=== PATIENT | female | born 1955 | race Hispanic/Latino ===

== ENCOUNTER 2016-09-26 12:10 | Emergency (ER) | payer MEDICARE, BC ==
[2016-09-26] MEDS ORDERED: TDAP Vaccine 0.5 mL Syr IM ONE (12:48)
--- NOTE | 2016-09-26 13:27 | ED PDOC ---
Arrival/HPI - General Chief Complaint: Abnormal Skin Integrity Time Seen by Provider: 09/26/16 12:18 Historian: Patient - History of Present Illness Narrative History of Present Illness (Text): 09/26/16 13:24 61-year-old female presents today with a laceration to the left eyebrow status post fall. Patient states last night around 1:30 in the morning the patient tripped over a box fell hitting the left side of her head. She denies loss of consciousness. Patient denies headache dizziness or weakness. She is complaining of multiple abrasions to the left side of the face. She denies worsening blurred vision. Patient states she has a history of poor vision and if she is not wearing her glasses she requires a seeing eye dog. Patient states that she was walking last night she just tripped and fell hitting her head. Patient denies neck or back pain. Unsure of her last tetanus shot. No medications were taken at home. No other complaints. Past Medical History - Provider Review Nursing Documentation Reviewed: Yes - Travel History Have you recently traveled outside [place] w/in the past 3 mons?: No - Tetanus Immunization Tetanus Immunization: Unknown Family/Social History - Physician Review Nursing Documentation Reviewed: Yes Family/Social History: Unknown Family HX Smoking Status: Never Smoked Hx Alcohol Use: No Hx Substance Use: No Allergies/Home Meds Allergies/Adverse Reactions: Allergies No Known Allergies Allergy (Verified 09/26/16 12:27) Home Medications: Home Meds Medication Instructions Recorded Confirmed Sertraline [Zoloft] 50 mg PO DAILY 09/26/16 09/26/16 Topiramate [Topamax] 200 mg PO DAILY 09/26/16 09/26/16 Topiramate [Topamax] 300 mg PO DAILY 09/26/16 09/26/16 levETIRAcetam [Keppra] 500 mg PO BID 09/26/16 09/26/16 Review of Systems - Review of Systems Constitutional: absent: Fatigue, Fevers Eyes: absent: Photophobia, Eye Pain Respiratory: absent: Cough Cardiovascular: absent: Chest Pain Gastrointestinal: absent: Abdominal Pain, Nausea, Vomiting Musculoskeletal: absent: Arthralgias Neurological: absent: Headache, Dizziness Physical Exam Vital Signs Reviewed: Yes Vital Signs Temp Pulse Resp BP Pulse Ox 09/26/16 12:30 97.9 F 97 H 16 111/71 97 Temperature: Afebrile Blood Pressure: Normal Pulse: Regular Respiratory Rate: Normal Appearance: Positive for: Well-Appearing, Non-Toxic, Comfortable Pain Distress: None Mental Status: Positive for: Alert and Oriented X 3 - Systems Exam Head: Present: Tenderness (+ ttp over inferior and superior orbit.), Swelling, Abrasion (multiple abrasions to left cheek, abrasion noted to left ear pinna. ), Laceration (4cm verticle jagged laceration to left eyebrow extending to the lateral aspect of the left eye. minimal bleeding noted. ), Other Pupils: Present: PERRL Extroacular Muscles: Present: EOMI Conjunctiva: Present: Normal Ears: Present: Normal, NORMAL TM Mouth: Present: Moist Mucous Membranes Pharnyx: Present: Normal Nose (External): Present: Atraumatic Nose (Internal): Present: Normal Inspection. No: Septal Hematoma Neck: Present: Normal Range of Motion. No: MIDLINE TENDERNESS, Paraspinal Tenderness Respiratory/Chest: Present: Clear to Auscultation, Good Air Exchange. No: Respiratory Distress, Accessory Muscle Use Cardiovascular: Present: Regular Rate and Rhythm, Normal S1, S2. No: Murmurs Neurological: Present: GCS=15, Speech Normal Skin: Present: Warm, Dry Psychiatric: Present: Alert, Oriented x 3 Medical Decision Making ED Course and Treatment: 09/26/16 14:50 61yr old female presents today with laceration to left eyebrow s/p fall last night. pt refused head ct and maxillofacial ct. wound approx 11 hours old. actively bleeding, gapping 4cm jagged laceration. wound irrigated with copious amounts of NS using high pressure irrigation. tetanus updated. laceration repair; 8 sutures placed. bacitracin and dressing applied. advised patient to take keflex 4 times daily x 5 days. advised keeping wound clean and dry and applying bacitracin twice daily. advised immediate return if symptoms worsen,persist or if new symptoms develop. advised return in 5 days for suture removal. Patient verbalizes understanding of discharge instructions and need for immediate followup. impression:Head injury,eyebrow laceration,orbital contusion, facial abrasion Motrin every 6 hours as needed for pain Keflex; 4 time daily x 5 days Keep the wound clean and dry, apply bacitracin twice daily Return in 5 days for suture removal Return immediately if signs of infection develop: High fevers, increasing pain, redness, swelling, purulent discharge Follow up with the plastic surgeon within the next 2 days. Followup with primary care physician within the next 2 days Return if any other concerning symptoms develop - RAD Interpretation Radiology Orders: 09/26/16 12:47 HEAD W/O CONTRAST [CT] Stat MAXILLOFACIAL W/O CONTRAST [CT] Stat - Medication Orders Current Medication Orders: Discontinued Medications Lidocaine HCl (Lidocaine 1% (20ml)) Confirm Administered Dose 20 ml .ROUTE .STK- MED ONE Stop: 09/26/16 13:53 Tetanus/Reduced Diphtheria/Acell Pertussis (Boostrix Vaccine Inj) 0.5 ml IM .ONCE ONE Stop: 09/26/16 12:49 Last Admin: 09/26/16 12:55 Dose: 0.5 ml Disposition/Present on Arrival - Present on Arrival Any Indicators Present on Arrival: No History of DVT/PE: No History of Uncontrolled Diabetes: No Urinary Catheter: No History of Decub. Ulcer: No - Disposition Have Diagnosis and Disposition been Completed?: Yes Diagnosis: Laceration of eyebrow, Abrasion, face w/o infection, Head injury, Orbital contusion Disposition: HOME/ ROUTINE Disposition Time: 13:39 Patient Plan: Discharge Condition: GOOD Discharge Instructions (ExitCare): Head Injury (ED), Facial Laceration (ED) Additional Instructions: Motrin every 6 hours as needed for pain Keflex; 4 time daily x 5 days Keep the wound clean and dry, apply bacitracin twice daily Return in 5 days for suture removal Return immediately if signs of infection develop: High fevers, increasing pain, redness, swelling, purulent discharge Follow up with the plastic surgeon within the next 2 days. Followup with primary care physician within the next 2 days Return if any other concerning symptoms develop Prescriptions: Cephalexin [Keflex] 500 mg PO QID #20 capsule Referrals: Sharan Musa MD [Primary Care Provider] - Follow up with primary Kendrick Stauffer MD [Staff Provider] - Follow up with primary
[2016-09-26 13:38] VITALS: BP 111/71; PULSE 97; RESP 16; TEMP 97.9; O2SAT 97
[2016-09-26] MEDS ORDERED: Lidocaine 1% Inj (20ml) ONE (13:52)
== END 2016-09-26 14:50 | disposition home or self-care (01) ==
LOC: ED 12:10
DX: S01.112A Laceration without foreign body of left eyelid and periocular area, initial encounter (principal); S05.12XA Contusion of eyeball and orbital tissues, left eye, initial encounter; W01.0XXA Fall on same level from slipping, tripping and stumbling without subsequent striking against object, initial encounter; Y93.89 Activity, other specified; Y92.89 Other specified places as the place of occurrence of the external cause; Z23 Encounter for immunization

== ENCOUNTER 2016-09-30 16:42 | Emergency (ER) | payer MEDICARE, BC ==
[2016-09-30 16:46] VITALS: BP 99/68; PULSE 90; RESP 16; TEMP 98; O2SAT 99
--- NOTE | 2016-09-30 17:14 | ED PDOC ---
Arrival/HPI - General Chief Complaint: Wound Check Time Seen by Provider: 09/30/16 16:43 Historian: Patient - History of Present Illness Narrative History of Present Illness (Text): 09/30/16 17:11 This 61 yo female presents to this ED for wound recheck. Patient stated she had a laceration repaired done 4 days ago. She was told to come back 5 days later for suture removal. While waiting in the ED, patient realized she came on day four. She prefers to return tomorrow to have sutures removed. Denies new complains. Time/Duration: Other (4 days) Context: Home Past Medical History - Provider Review Nursing Documentation Reviewed: Yes - Tetanus Immunization Tetanus Immunization: Unknown - Cardiac Hx Cardiac Disorders: No - Pulmonary Hx Respiratory Disorders: No - Neurological Other/Comment: FIBROMYALGIA - HEENT Hx HEENT Disorder: No - Renal Hx Renal Disorder: No - Endocrine/Metabolic Hx Endocrine Disorders: No - Hematological/Oncological Hx Blood Disorders: No - Integumentary Hx Dermatological Disorder: No - Gastrointestinal Hx Gastrointestinal Disorders: No - Genitourinary/Gynecological Hx Genitourinary Disorders: No - Psychiatric Hx Depression: Yes Hx Substance Use: No - Surgical History Hx Orthopedic Surgery: Yes (NECK, R WRIST, SPINE) Family/Social History - Physician Review Nursing Documentation Reviewed: Yes Family/Social History: No Known Family HX Smoking Status: Never Smoked Hx Alcohol Use: No Hx Substance Use: No Allergies/Home Meds Allergies/Adverse Reactions: Allergies No Known Allergies Allergy (Verified 09/30/16 16:43) Home Medications: Home Meds Medication Instructions Recorded Confirmed Sertraline [Zoloft] 50 mg PO DAILY 09/26/16 09/30/16 Topiramate [Topamax] 200 mg PO DAILY 09/26/16 09/30/16 Topiramate [Topamax] 300 mg PO DAILY 09/26/16 09/30/16 levETIRAcetam [Keppra] 500 mg PO BID 09/26/16 09/30/16 Review of Systems - Review of Systems Constitutional: Normal. absent: Fatigue, Weight Change, Fevers Eyes: Normal ENT: Normal Respiratory: Normal Cardiovascular: Normal Gastrointestinal: Normal Genitourinary Female: Normal Musculoskeletal: Normal Skin: Other (wound check) Neurological: Normal Endocrine: Normal Hemo/Lymphatic: Normal Psychiatric: Normal Physical Exam Vital Signs Temp Pulse Resp BP Pulse Ox 09/30/16 16:43 98.0 F 90 16 99/68 L 99 Temperature: Afebrile Blood Pressure: Normal Pulse: Regular Respiratory Rate: Normal Appearance: Positive for: Well-Appearing, Non-Toxic, Comfortable Pain Distress: None Mental Status: Positive for: Alert and Oriented X 3 - Systems Exam Head: Present: Normocephalic, Other (Left suprorbital wound is healing well, no dehiscense. (+) mild left infraorbital ecchymosis. No bony tenderness) Pupils: Present: PERRL, Other (no hyphema) Extroacular Muscles: Present: EOMI. No: Entrapment Conjunctiva: Present: Normal, Other (no aragon signs) Ears: Present: Normal, NORMAL TM, Normal Canal, Other (no hemotympanum). No: Erythema, TM Bulging, Fluid, TM Perf Mouth: Present: Moist Mucous Membranes Neck: Present: Normal Range of Motion. No: Meningeal Signs Upper Extremity: Present: Normal Inspection, Neurovascularly Intact, Capillary Refill < 2s Lower Extremity: Present: Normal Inspection, NORMAL PULSES, Normal ROM, Capillary Refill < 2 s Neurological: Present: GCS=15, CN II-XII Intact, Speech Normal, Motor Func Grossly Intact, Normal Sensory Function, Normal Cerebellar Funct, Norm Deep Tendon Reflexes, Gait Normal, Memory Normal Skin: Present: Warm, Dry, Normal Color. No: Rashes Psychiatric: Present: Alert, Oriented x 3 Medical Decision Making ED Course and Treatment: 09/30/16 17:16 Re-evaluation. Patient feels better. Discussed results and plan with patient who expresses understanding. All questions answered and there is agreement with the plan to discharge home with instructions. Patient stable for discharge. Return if symptoms persist or worsen. Patient does not want to have sutures remove today, she prefers to return tomorrow. Re-evaluation Time: 17:16 Reassessment Condition: Re-examined, Improved Disposition/Present on Arrival - Present on Arrival Any Indicators Present on Arrival: No History of DVT/PE: No History of Uncontrolled Diabetes: No Urinary Catheter: No History of Decub. Ulcer: No History Surgical Site Infection Following: None - Disposition Have Diagnosis and Disposition been Completed?: Yes Diagnosis: Encounter for wound re-check Disposition: HOME/ ROUTINE Disposition Time: 17:17 Patient Plan: Discharge Patient Problems: Current Active Problems Problem Status Onset Encounter for wound re-check Acute Condition: GOOD Discharge Instructions (ExitCare): Facial Laceration (ED) Additional Instructions: Return to emergency of private doctor to have sutures removed. Clean wound daily with soap and water. Referrals: Sharan Musa MD [Primary Care Provider] - Follow up with primary
== END 2016-09-30 17:26 | disposition home or self-care (01) ==
LOC: ED 16:42
DX: Z51.89 Encounter for other specified aftercare (principal)

== ENCOUNTER 2016-10-01 13:41 | Emergency (ER) | payer MEDICARE, BC ==
[2016-10-01 13:51] VITALS: BP 91/65; PULSE 96; RESP 18; TEMP 98; O2SAT 98; BMI 16.7
--- NOTE | 2016-10-01 14:04 | ED PDOC ---
Arrival/HPI - General Chief Complaint: Suture/Staple Removal Time Seen by Provider: 10/01/16 13:46 Historian: Patient - History of Present Illness Narrative History of Present Illness (Text): 10/01/16 13:57 61yr old female presents today for suture removal to left eyebrow. Pt states she fell on 09/26 early in the morning. pt states she had sutures placed later that day. pt presents for suture removal. denies pain. denies headaches, dizziness, weakness. no cp or sob. denies any arthralgias. No other complaints. Past Medical History - Provider Review Nursing Documentation Reviewed: Yes - Travel History Have you recently traveled outside [place] w/in the past 3 mons?: No - Infectious Disease Hx of Infectious Diseases: None - Tetanus Immunization Tetanus Immunization: Up to Date - Cardiac Hx Cardiac Disorders: No - Pulmonary Hx Respiratory Disorders: No - Neurological Hx Neurological Disorder: Yes Hx Migraine: Yes Other/Comment: FIBROMYALGIA - HEENT Hx HEENT Disorder: No - Renal Hx Renal Disorder: No - Endocrine/Metabolic Hx Endocrine Disorders: No - Hematological/Oncological Hx Blood Disorders: No - Integumentary Hx Dermatological Disorder: No - Musculoskeletal/Rheumatological Hx Musculoskeletal Disorders: Yes - Gastrointestinal Hx Gastrointestinal Disorders: No - Genitourinary/Gynecological Hx Genitourinary Disorders: No - Psychiatric Hx Psychophysiologic Disorder: Yes Hx Depression: Yes Hx Substance Use: No - Surgical History Hx Orthopedic Surgery: Yes (NECK, R WRIST, SPINE) - Anesthesia Hx Anesthesia: Yes Hx Anesthesia Reactions: No Family/Social History - Physician Review Nursing Documentation Reviewed: Yes Family/Social History: Unknown Family HX Smoking Status: Never Smoked Hx Alcohol Use: No Hx Substance Use: No Allergies/Home Meds Allergies/Adverse Reactions: Allergies azelastine [From Astelin] Allergy (Verified 10/01/16 13:51) RASH Home Medications: Home Meds Medication Instructions Recorded Confirmed Sertraline [Zoloft] 50 mg PO DAILY 09/26/16 10/01/16 Topiramate [Topamax] 200 mg PO DAILY 09/26/16 10/01/16 Topiramate [Topamax] 300 mg PO DAILY 09/26/16 10/01/16 levETIRAcetam [Keppra] 500 mg PO BID 09/26/16 10/01/16 Review of Systems - Review of Systems Constitutional: absent: Fatigue, Fevers Eyes: absent: Eye Pain ENT: absent: Sinus Congestion Cardiovascular: absent: Chest Pain, Palpitations Gastrointestinal: absent: Abdominal Pain, Nausea, Vomiting Musculoskeletal: absent: Arthralgias Skin: Laceration Neurological: absent: Headache, Dizziness, Disequilibrium Physical Exam Vital Signs Reviewed: Yes Vital Signs Temp Pulse Resp BP Pulse Ox 10/01/16 13:50 98.0 F 96 H 18 91/65 L 98 Temperature: Afebrile Blood Pressure: Normal Pulse: Regular Respiratory Rate: Normal Appearance: Positive for: Well-Appearing, Non-Toxic, Comfortable Pain Distress: None Mental Status: Positive for: Alert and Oriented X 3 - Systems Exam Head: Present: Laceration (healing laceration to left eyebrow with [address]; no edema, no erythema; + ecchymosis left inferior orbit. ). No: Swelling Extroacular Muscles: Present: EOMI Mouth: Present: Moist Mucous Membranes Neck: Present: Normal Range of Motion Respiratory/Chest: Present: Clear to Auscultation Cardiovascular: Present: Regular Rate and Rhythm Upper Extremity: Present: Normal ROM Lower Extremity: Present: Normal ROM Neurological: Present: GCS=15, Speech Normal, Gait Normal Skin: Present: Warm, Dry Psychiatric: Present: Alert, Oriented x 3 Medical Decision Making ED Course and Treatment: 10/01/16 14:06 Patient is nontoxic well-appearing in no distress. Vital signs are stable. Left eyebrow: 8 sutures removed Wound healing well without signs of infection Patient alert oriented in no distress ambulating with a steady gait. I advised the patient to keep the wound clean and dry apply bacitracin twice daily and return if symptoms worsen persist or if new symptoms develop Patient verbalizes understanding of discharge instructions and need for immediate followup. Impression: Suture removal Keep the wound clean and dry Apply bacitracin twice daily Follow up with primary care physician within the next 2 days Return immediately if symptoms worsen persist or if new symptoms develop Disposition/Present on Arrival - Present on Arrival Any Indicators Present on Arrival: No History of DVT/PE: No History of Uncontrolled Diabetes: No Urinary Catheter: No History of Decub. Ulcer: No History Surgical Site Infection Following: None - Disposition Have Diagnosis and Disposition been Completed?: Yes Diagnosis: Visit for suture removal Disposition: HOME/ ROUTINE Disposition Time: 13:55 Patient Plan: Discharge Condition: GOOD Discharge Instructions (ExitCare): Stitches Removal (ED) Additional Instructions: Keep the wound clean and dry Apply bacitracin twice daily Follow up with primary care physician within the next 2 days Return immediately if symptoms worsen persist or if new symptoms develop Referrals: Sharan Musa MD [Staff Provider] - Follow up with primary
== END 2016-10-01 14:03 | disposition home or self-care (01) ==
LOC: ED 13:41
DX: Z48.02 Encounter for removal of sutures (principal)